=== PATIENT | female | born 1975 | race Caucasian/White ===

== ENCOUNTER → 2017-04-03 | Outpatient (CLI) | payer OTHER ==
[~2017-04-03] MED LIST: ACET500L36 PO; HYDR-757 PO; NAPR500T PO
--- NOTE | 2017-04-03 09:09 | Diagnostic Imaging Report ---
EXAMINATION: Bilateral diagnostic mammogram with a Computer Aided Detection (CAD) system. COMPARISON: No prior studies are available for comparison. This is a baseline study. INDICATION: Palpable lump in the right breast outer aspect. FINDINGS: The breasts are composed of heterogeneously dense parenchyma which may decrease mammographic sensitivity. There is nonspecific focal asymmetry in the lateral aspect of the right breast involving a large area of fibroglandular tissue density with no discrete separate mass identified on mammography. There is no suspicious calcification. IMPRESSION: Relatively large focal asymmetry in the outer aspect of the right breast. Ultrasound evaluation is pending. ACR BI-RADS Category 0: Incomplete. (Needs additional imaging evaluation). Result letter will be mailed to the patient. Note: At least 10% of breast cancer is not imaged by mammography. Dictated by: Dictated on workstation # [id number]
--- NOTE | 2017-04-03 11:46 | Diagnostic Imaging Report ---
EXAMINATION: Right breast ultrasound. INDICATION: Palpable lump and large focal asymmetry in the outer aspect of the right breast seen on mammography. FINDINGS: The four-quadrants and retroareolar region of the right breast were scanned. There are simple cysts seen in the right breast at the 10 o'clock zone 3 cm from the nipple up to 1.3 cm in size. There is also a lobulated cystic area with mild internal debris suggested but with preserved through transmission and no internal vascularity noted at the 11 o'clock zone 2 cm from the nipple. This measures 0.9 x 0.7 x 0.8 cm. No other lesion is noted. IMPRESSION: Hypoechoic lobulated lesion measuring 0.9 cm at the 11 o'clock zone 2 cm from the nipple is likely a complicated cyst. A 6 month followup right breast mammogram and ultrasound re-evaluation of the 11 o'clock lesion is recommended. ACR BI-RADS Category 3: Probably benign findings. Dictated by: Dictated on workstation # [id number]
== END ==
LOC: RAD 08:07
PROVIDERS: ATTEND Nurse Practitioner Adult Health
DX: N63 Unspecified lump in breast (principal)
CPT/HCPCS: 76641; 77066

== ENCOUNTER → 2017-10-25 | Outpatient (CLI) | payer OTHER ==
[~2017-10-25] MED LIST changes: +NAPR-1071 PO; -NAPR500T PO
--- NOTE | 2017-10-25 09:51 | Diagnostic Imaging Report ---
EXAMINATION: Ultrasound of the right breast. INDICATION: Right breast lumps. PERSONAL HISTORY: The previous right breast ultrasound exam performed on 04/03/2017 noted a few cysts within the upper outer aspect of the right breast including a 0.9 cm lobulated cyst in the 11 o'clock position roughly 2 cm from the nipple. The diagnostic mammogram of the right breast performed earlier today failed to show any sign of malignancy. FINDINGS: On this study, the lobulated cyst in the upper-outer aspect of the breast seen previously is again evident and has increased in size somewhat. This cyst now measures 1.2 x 1.6 cm. The cyst still has a generally benign appearance. There are also a few other cysts in this area as well. These cysts measure 1 cm or less but also seem somewhat more prominent than on the prior exam. These cysts also have a generally benign appearance. There are a few internal echoes within the cysts indicating that they may be slightly complicated by infection and/or hemorrhage. There is no internal vascularity, however. There is no solid mass visualized. IMPRESSION: The cysts in the upper-outer aspect of the right breast seen previously have increased in size somewhat. These cysts still have a generally benign appearance. Even so, it may prove worthwhile to re-evaluate these cysts when the patient has her annual bilateral mammogram on schedule in March 2019. ACR BI-RADS Category 3: Probably benign findings. Dictated by: Dictated on workstation # [id number]
--- NOTE | 2017-10-25 16:49 | Diagnostic Imaging Report ---
INDICATION: Right breast lump. EXAMINATION: Right breast digital diagnostic mammogram with CAD. The current study was also evaluated with a Computer Aided Detection (CAD) system. COMPARISON: This study was compared to the prior exam of 03/26/2017. FINDINGS: At the time of the prior study, the patient reports a lump in the upper-outer quadrant of the right breast. The diagnostic mammogram failed to show any sign of malignancy but the ultrasound exam performed at the same time did note a lobulated 0.9 cm cyst in the 11 o'clock position of the right breast. On this study, the fibroglandular tissue in the right breast is quite dense. This does limit the sensitivity of this exam. When compared to the previous study there does not appear to have been any significant change. There is no primary or secondary sign of malignancy noted. The cyst suggested on the ultrasound exam is difficult to appreciate even on the tomographic images. IMPRESSION: 1. There is no evidence for malignancy. 2. Ultrasound has been scheduled for further evaluation. ACR BI-RADS Category 0: Incomplete. (Needs additional imaging evaluation). Result letter will be mailed to the patient. Note: At least 10% of breast cancer is not imaged by mammography. Dictated by: Dictated on workstation # [id number]
== END ==
LOC: RAD 08:06
PROVIDERS: ATTEND Nurse Practitioner Family
DX: N60.01 Solitary cyst of right breast (principal)

== ENCOUNTER → 2017-11-07 | Outpatient (CLI) | payer OTHER ==
[~2017-11-07] MED LIST changes: +LIDOCAINE 2% 20 ML (XYLOCAINE) VIAL ONE
--- NOTE | 2017-11-07 11:47 | Diagnostic Imaging Report ---
INDICATION: Right breast cyst. Patient presents for ultrasound-guided cyst aspiration. The patient was brought to the procedure room and placed on the bed in the supine position. Ultrasound imaging over the right breast was performed to evaluate appropriate entry site. The right breast was prepped and draped in usual sterile fashion. A small amount of 1% lidocaine was utilized for local anesthesia. A 20-gauge needle was advanced into the cyst at the 10 o'clock location of the right breast, 3 cm from the nipple. Cyst fluid was aspirated. The cyst was completely collapsed. Approximately 1 cc of fluid was aspirated. Fluid was tea-colored. IMPRESSION: Successful ultrasound-guided aspiration of the simple appearing cyst 10 o'clock location right breast. The fluid will be sent to cytology for evaluation. The patient tolerated the procedure well. Dictated by: Dictated on workstation # [id number]
== END ==
LOC: RAD 08:48
PROVIDERS: ATTEND Surgery
DX: N60.01 Solitary cyst of right breast (principal)
CPT/HCPCS: 76942

== ENCOUNTER 2018-11-29 08:12 | Emergency (ER) | payer SELFPAY ==
[~2018-11-29] VITALS: Ht 165.1 cm; Wt 61.2 kg
[~2018-11-29 08:12] MED LIST changes: +HYDR-4226 PO; -HYDR-757 PO; -LIDOCAINE 2% 20 ML (XYLOCAINE) VIAL ONE
[2018-11-29 08:37] LABS: BASOPHILS # (AUTO) 0.1 10^3/uL (0.0-0.1); BASOPHILS % (AUTO) 1 % (0-10); EOSINOPHILS # (AUTO) 0.2 10^3/uL (0.0-0.3); EOSINOPHILS % (AUTO) 2 % (0-10); HEMATOCRIT 32 % (35-52); HEMOGLOBIN 9.2 G/DL (11.5-16.0); LYMPHOCYTES # (AUTO) 2.2 X 10^3 (1.0-4.0); LYMPHOCYTES % (AUTO) 33 % (12-44); MEAN CORPUSCULAR HEMOGLOBIN 22 PG (25-34); MEAN CORPUSCULAR HGB CONC 29 G/DL (32-36); MEAN CORPUSCULAR VOLUME 77 FL (80-99); MEAN PLATELET VOLUME 8.8 FL (7.4-10.4); MONOCYTES # (AUTO) 0.5 X 10^3 (0.0-1.0); MONOCYTES % (AUTO) 7 % (0-12); NEUTROPHILS # (AUTO) 3.9 X 10^3 (1.8-7.8); NEUTROPHILS % (AUTO) 57 % (42-75); PLATELET COUNT 568 10^3/uL (130-400); RED CELL DISTRIBUTION WIDTH 17.7 % (10.0-14.5); WHITE BLOOD COUNT 6.8 10^3/uL (4.3-11.0)
--- NOTE | 2018-11-29 08:47 | NUR ---
PT TO CT AT 0840
[2018-11-29 08:52] LABS: ALANINE AMINOTRANSFERASE 9 U/L (0-55); ALBUMIN 4.2 GM/DL (3.2-4.5); ALKALINE PHOSPHATASE 53 U/L (40-136); BILIRUBIN,TOTAL 0.4 MG/DL (0.1-1.0); BUN/CREATININE RATIO 14; CALCIUM 9.3 MG/DL (8.5-10.1); CARBON DIOXIDE 24 MMOL/L (21-32); CHLORIDE 105 MMOL/L (98-107); CREATININE SERUM 0.81 MG/DL (0.60-1.30); GFR ESTIMATED > 60; GLUCOSE 115 MG/DL (70-105); POTASSIUM 3.7 MMOL/L (3.6-5.0); SODIUM 140 MMOL/L (135-145); TOTAL PROTEIN 7.1 GM/DL (6.4-8.2)
--- NOTE | 2018-11-29 08:56 | Diagnostic Imaging Report ---
PROCEDURE: CT head wo r/o stroke. TECHNIQUE: Multiple contiguous axial images were obtained through the brain without the use of intravenous contrast. INDICATION: Stroke like symptoms. COMPARISON: None FINDINGS: There is no midline shift or mass effect. The ventricles and sulci are unremarkable. No evidence for acute intracranial hemorrhage, abnormal extra-axial fluid collections or cerebral edema is present. The basilar cisterns are unremarkable. The bony calvarium is intact. The visualized paranasal sinuses and mastoid air cells are clear. IMPRESSION: Negative appearing noncontrast CT of the head. Dictated by: Dictated on workstation # [id number]
[2018-11-29 08:59] LABS: FIBRIN DEGRADATION PRODUCTS 0.27 UG/ML (0.00-0.49)
[2018-11-29 08:59] LABS: BILIRUBIN,URINE NEGATIVE (NEGATIVE); CLARITY,URINE CLEAR; COLOR,URINE YELLOW; GLUCOSE, URINE (UA) NEGATIVE (NEGATIVE); KETONES,URINE NEGATIVE (NEGATIVE); LEUKOCYTE ESTERASE ,URINE NEGATIVE (NEGATIVE); NITRITE,URINE NEGATIVE (NEGATIVE); PH,URINE 6 (5-9); PROTEIN,URINE NEGATIVE (NEGATIVE); UROBILINOGEN,URINE NORMAL (NORMAL)
[2018-11-29 09:15] LABS: BACTERIA,URINE TRACE /HPF; WBC,URINE RARE /HPF
[2018-11-29 09:16] LABS: RBC,URINE RARE /HPF
--- NOTE | 2018-11-29 09:37 | NUR ---
pt back from ct at this time
--- NOTE | 2018-11-29 09:48 | Diagnostic Imaging Report ---
INDICATION: Stroke like symptoms, expressive aphasia. TECHNIQUE: Sequential multiphase CT imaging performed of the head for cerebral blood flow perfusion examination.. CORRELATION STUDY: None FINDINGS: This is a technically satisfactory study. The cerebral blood flow and cerebral blood volume are measured at zero suggesting no acute area of infarct currently. The perfusion studies demonstrate a very small volume of the brain parenchyma measuring greater than 6 seconds, involving the posterior inferior left frontal and temporal lobe. An adjacent volume of approximately 13 mm surrounding this area measures greater than 4 seconds. The total hypoperfusion index is measured at 0 with a mismatch ratio at infinite. IMPRESSION: 1. Perfusion imaging demonstrates no finding suggestive of the significant volume of infarct. 2. There is some diminished delayed perfusion suggested about the posterior inferior left frontal and temporal lobe. Findings have been telephoned to Dr. Anderson. Dictated by: Dictated on workstation # [id number]
--- NOTE | 2018-11-29 09:49 | Diagnostic Imaging Report ---
PA chest at 9:32 Indication: CVA There are no prior studies available for comparison but this exam is less than optima due to shallow inspiration. The heart size is within normal limits. The lungs are clear. There is no evidence for failure, pneumonia or for pleural effusion. Mediastinum is not widened. The osseous structures are intact. Impression: There is no evidence for an acute cardiopulmonary abnormality. Dictated by: Dictated on workstation # [id number]
--- NOTE | 2018-11-29 10:20 | NUR ---
pt brother at pt bedside.
--- NOTE | 2018-11-29 11:30 | Diagnostic Imaging Report ---
PROCEDURE: CT angiography of the head and CT angiography of the neck with and without contrast. TECHNIQUE: Contiguous noncontrast images were obtained from the skull base through the vertex. After intravenous contrast administration, helical CT angiography of the neck was performed. Source data was reformatted into multiple MIP projections. Delayed post contrast acquisition was also obtained. INDICATION: CVA, difficulty speaking, right hand weakness. The CT head exam performed earlier today failed to show any sign acute intracranial abnormality. The subsequent CT perfusion study did show a very small area of delayed perfusion involving the left posterior frontal and temporal lobes. On this exam there is no defect within the intracranial arterial circulation to suggest a thrombus. There is no significant alteration in appearance to the vessels in the left frontal temporal region compared to the right frontal temporal region. There does seem to be a paucity of the opacified vessels in this area however, when compared to the contralateral side. No other vascular abnormality is identified. There is no evidence for an aneurysm of the [place] of [place] either. There is no abnormal enhancement to suggest a neoplastic or infectious process either. The images of the carotid systems failed to show any sign of a hemodynamically significant stenosis. Both vertebral arteries were identified. The vertebral arteries are opacified and there is no sign of a dissection. The left vertebral artery is dominant. There is no mass or adenopathy in the neck. The tracheal air shadow is not compressed or deviated. The thyroid gland is generally unremarkable The lung apices are clear. The bone windows show no evidence for a fracture or for destructive lesion. There is degenerative disc and bony disease at C4-5. IMPRESSION: 1. There is no defect within the intracranial arterial circulation to suggest a thrombus. There is no sign of an aneurysm of the [place] of [place] either. 2. There does seem to be a paucity of opacified vessels in the area of delayed perfusion seen on the perfusion study. If further imaging is desired, MRI would recommended. 3. There no evidence for hemodynamically significant stenosis of the carotid systems. The vertebral arteries are generally unremarkable. These results were discussed Dr. Anderson. Dictated by: Dictated on workstation # [id number]
[2018-11-29] MEDS ORDERED: ASPIRIN 325 MG (5 GR) TABLET PO ONE (12:30)
--- NOTE | 2018-11-29 13:12 | ED Neurological Problem ---
General Chief Complaint: Neuro-Stroke Like Symptoms Stated Complaint: POSSIBLE STROKE Nursing Triage Note: PT PRESENTS TO ED WITH COMPLAINTS OF DIFFICULTY SPEAKING AND R HAND WEAKNESS STARTING WHEN SHE WOKE UP AT 0730 THIS AM. PT REPORTS SHE WENT TO BED AT 1130 LAST NIGHT AND WAS FEELING FINE THEN. Nursing Sepsis Screen: No Definite Risk Source: patient Exam Limitations: no limitations History of Present Illness Date Seen by Provider: Nov 29, 2018 Time Seen by Provider: 08:18 Initial Comments This 42-year-old woman presents to the emergency room with difficulty with word finding and completion of expressed thoughts. Her last known well time was at 23:30 when she went to bed. She noticed these symptoms of difficulty with speech upon waking. She has numbness in her right upper extremity but no measurable deficits in strength or coordination. She has no history of stroke. She does not take any blood thinning medications. She notes having a headache yesterday for which she took Tylenol or naproxen. Allergies and Home Medications Allergies Coded Allergies: Penicillins (Unverified Adverse Reaction, Unknown, 03/16/16) Home Medications Acetaminophen 500 Mg/5 Ml Liquid, 500 MG PO Q6H PRN for PAIN, (Reported) Hydrocodone/Acetaminophen 1 Each Tablet, 1 EACH PO Q4H PRN for PAIN Prescribed by: FILIBERTO MEADE on 03/16/16 1507 Naproxen 500 Mg Tablet, 500 MG PO BID Prescribed by: FILIBERTO MEADE on 03/16/16 1507 Patient Home Medication List Home Medication List Reviewed: Yes Review of Systems Review of Systems Constitutional: no symptoms reported Eyes: No Symptoms Reported Ears, Nose, Mouth, Throat: no symptoms reported Respiratory: no symptoms reported Cardiovascular: no symptoms reported Gastrointestinal: no symptoms reported Genitourinary: no symptoms reported : No Musculoskeletal: no symptoms reported Skin: no symptoms reported Psychiatric/Neurological: See HPI Endocrine: No Symptoms Reported Hematologic/Lymphatic: No Symptoms Reported Past Rfzsjeb-Juppzn-Huudvw Hx Patient Social History Alcohol Use: Denies Use Recreational Drug Use: No Smoking Status: Current Someday Smoker Type Used: Cigarettes Recent Foreign Travel: No Contact w/Someone Who Travel: No Recent Infectious Disease Expo: No Physical Abuse: No Sexual Abuse: No Mistreated: No Fear: No Seasonal Allergies Seasonal Allergies: No Past Medical History Surgeries: Yes Tubal Ligation Respiratory: No Cardiac: No Neurological: No : No Genitourinary: No Gastrointestinal: No Musculoskeletal: Yes (ANKLE FRACTURE, CHRONIC NECK PAIN) Arthritis Endocrine: Yes ("BORDERLINE DIABETIC") Cancer: No Psychosocial: No Blood Disorders: No Physical Exam Vital Signs Vital Signs - First Documented 11/29/18 08:22 Temp 98.0 Pulse 77 Resp 20 B/P (MAP) 144/81 (102) Pulse Ox 97 Capillary Refill : Less Than 3 Seconds Height, Weight, BMI Height: 5'5.00" Weight: 135lbs. oz. 61.634691gx; BMI Method:Stated General Appearance: WD/WN, no apparent distress HEENT: PERRL/EOMI, normal ENT inspection, pharynx normal Neck: normal inspection Respiratory: lungs clear, normal breath sounds, no respiratory distress, no accessory muscle use Cardiovascular: regular rate, rhythm, no edema, no murmur Extremities: normal inspection, no pedal edema Neurologic/Psychiatric: alert, normal mood/affect, oriented x 3, sensory deficit (slight numbness on the right and) Crainal Nerves: normal hearing, PERRL, abnormal speech (expressive aphasia) Coordination/Gait: normal finger to nose, normal gait Motor/Sensory: no motor deficit, sensory deficit (right upper extremity) Skin: normal color, warm/dry Stroke Onset of Symptoms Date of Onset of Symptoms: Nov 28, 2018 NIH Stroke Scale Assessment Level of Consciousness: 0=Alert (0), Level of Consciousness-Questions: 0= Answers both month/age (0), LOC Commands: 0=Performs both tasks (0), Visual Cruz: 0=No visual loss (0), Facial Movement (Facial Paresis): 0=Normal symmetrical mnt (0), Motor Function-Arms Right: 0=No drift (0), Motor Function- Arms Left: 0=No drift (0), Motor Function-Legs Right: 0=No drift (0), Motor Function-Legs Left: 0=No drift (0), Limb Ataxia: 0=Absent (0), Sensory: 1=Mild to Moderate loss (1), Best Language: 1=Mild to moderat aphasia (1), Dysarthria: 1=Mild to moderate loss (1), Extinction & Inattention: 1=Visual,tactile, auditory (1), Total: 4 Stroke Thrombolytic Exclusion Age 18 or Over: Yes Intracranial Neoplasm/Aneurysm: No Recent CPR: No Diabetic Hemorrhagic Retinopat: No Recent Obstetric Delivery: No Improving Symptoms: No Progress/Results/Core Measures Results/Orders Lab Results Laboratory Tests Test 11/29/18 08:21 11/29/18 08:22 11/29/18 08:43 Range/Units Glucometer 121 H 70-110 MG/DL White Blood Count 6.8 4.3-11.0 10^3/uL Red Blood Count 4.12 L 4.35-5.85 10^6/uL Hemoglobin 9.2 L 11.5-16.0 G/DL Hematocrit 32 L 35-52 % Mean Corpuscular Volume 77 L 80-99 FL Mean Corpuscular Hemoglobin 22 L 25-34 PG Mean Corpuscular Hemoglobin Concent 29 L 32-36 G/DL Red Cell Distribution Width 17.7 H 10.0-14.5 % Platelet Count 568 H 130-400 10^3/uL Mean Platelet Volume 8.8 7.4-10.4 FL Neutrophils (%) (Auto) 57 42-75 % Lymphocytes (%) (Auto) 33 12-44 % Monocytes (%) (Auto) 7 0-12 % Eosinophils (%) (Auto) 2 0-10 % Basophils (%) (Auto) 1 0-10 % Neutrophils # (Auto) 3.9 1.8-7.8 X 10^3 Lymphocytes # (Auto) 2.2 1.0-4.0 X 10^3 Monocytes # (Auto) 0.5 0.0-1.0 X 10^3 Eosinophils # (Auto) 0.2 0.0-0.3 10^3/uL Basophils # (Auto) 0.1 0.0-0.1 10^3/uL Prothrombin Time 13.0 12.2-14.7 SEC INR Comment 1.0 0.8-1.4 Activated Partial Thromboplast Time 29 24-35 SEC D-Dimer 0.27 0.00-0.49 UG/ML Sodium Level 140 135-145 MMOL/L Potassium Level 3.7 3.6-5.0 MMOL/L Chloride Level 105 98-107 MMOL/L Carbon Dioxide Level 24 21-32 MMOL/L Anion Gap 11 5-14 MMOL/L Blood Urea Nitrogen 11 7-18 MG/DL Creatinine 0.81 0.60-1.30 MG/DL Estimat Glomerular Filtration Rate > 60 BUN/Creatinine Ratio 14 Glucose Level 115 H 70-105 MG/DL Calcium Level 9.3 8.5-10.1 MG/DL Corrected Calcium 9.1 8.5-10.1 MG/DL Total Bilirubin 0.4 0.1-1.0 MG/DL Aspartate Amino Transf (AST/SGOT) 15 5-34 U/L Alanine Aminotransferase (ALT/SGPT) 9 0-55 U/L Alkaline Phosphatase 53 40-136 U/L Troponin I < 0.028 <0.028 NG/ML Total Protein 7.1 6.4-8.2 GM/DL Albumin 4.2 3.2-4.5 GM/DL Urine Color YELLOW Urine Clarity CLEAR Urine pH 6 5-9 Urine Specific [place] 1.010 L 1.016-1.022 Urine Protein NEGATIVE NEGATIVE Urine Glucose (UA) NEGATIVE NEGATIVE Urine Ketones NEGATIVE NEGATIVE Urine Nitrite NEGATIVE NEGATIVE Urine Bilirubin NEGATIVE NEGATIVE Urine Urobilinogen NORMAL NORMAL MG/DL Urine Leukocyte Esterase NEGATIVE NEGATIVE Urine RBC (Auto) 1+ H NEGATIVE Urine RBC RARE /HPF Urine WBC RARE /HPF Urine Squamous Epithelial Cells 5-10 /HPF Urine Crystals NONE /LPF Urine Bacteria TRACE /HPF Urine Casts NONE /LPF Urine Mucus SMALL H /LPF Urine Culture Indicated YES My Orders Orders - EVELYN VASQUEZ MD Cbc With Automated Diff (11/29/18 08:28) Protime With Inr (11/29/18 08:28) Partial Thromboplastin Time (11/29/18 08:28) Comprehensive Metabolic Panel (11/29/18 08:28) Fibrin Degradation Products (11/29/18 08:28) Troponin I (11/29/18 08:28) Ua Culture If Indicated (11/29/18 08:28) Chest 1 View, Ap/Pa Only (11/29/18 08:28) Ekg Tracing (11/29/18 08:28) Nothing By Mouth (11/29/18 Lunch) Accucheck Stat ONCE (11/29/18 08:28) Saline Lock/Iv-Start (11/29/18 08:28) Saline Lock/Iv-Start (11/29/18 08:28) Vital Signs Stroke Patient Q15M (11/29/18 08:28) Ct Head Wo-R/O Stroke (11/29/18 08:28) O2 (11/29/18 08:28) Intake & Output 06,14,22 (11/29/18 08:28) Monitor-Rhythm Ecg Trace Only (11/29/18 08:28) Dysphagia Screening Tool (11/29/18 08:28) Post Thrombolytic Adminstratio (11/29/18 08:28) Lipid Panel (11/30/18 06:00) Ct Angio Head/Neck (11/29/18 08:28) Ct Head Perfusion W/ Contrast (11/29/18 08:48) Urine Culture (11/29/18 08:43) Aspirin Tablet (Aspirin Tablet) (11/29/18 12:30) Medications Given in ED Current Medications Medications Dose Ordered Sig/Chase Route Start Time Stop Time Status Last Admin Dose Admin Aspirin 325 mg ONCE ONCE PO 11/29/18 12:30 11/29/18 12:31 DC 11/29/18 12:48 325 MG Vital Signs/I&O 11/29/18 08:22 Temp 98.0 Pulse 77 Resp 20 B/P (MAP) 144/81 (102) Pulse Ox 97 Blood Pressure Mean: 102 FSBG Bedside Testing Finger Stick Blood Glucose: 121 Progress Progress Note : Progress Note Stroke activation was paged after initial assessment. Initial NIH stroke score was 4, primarily due to the expressive aphasia. Dr. Gomez, stroke neurologist at [facility], was consulted. She recommended adding a CT perfusion scan. These imaging studies were obtained. There were no additional findings on CT perfusion scan or CT angiogram to prompt transfer for intravascular therapies. She didn't recommend completion of the stroke workup to include MRI and echocardiogram. MRI cannot be performed at this facility until December 01. Patient elected to transfer to [facility] to finish her evaluation. She remained stable during her ER stay. Workup was otherwise unremarkable. Repeat NIH stroke score was 4. Aspirin was given after patient passed her dysphagia screening. Initial ECG Impression Date: Nov 29, 2018 Initial ECG Impression Time: 09:46 Initial ECG Rate: 65 Initial ECG Rhythm: Normal Sinus Initial ECG Intervals: Normal Initial ECG Impression: Normal Comment Normal sinus rhythm with no ST elevation or depression. No abnormal intervals or axis deviation. Diagnostic Imaging Diagonstic Imaging: CT Plain Films/CT/US/NM/MRI: head Comments CT head viewed by me and report reviewed. See report below: NAME: EDUARDO ROWE [facility] REC#: [id number] PT STATUS: REG ER : 1975 PHYSICIAN: EVELYN VASQUEZ MD ADMIT DATE: 11/29/18/ER Signed Date of Exam: 11/29/18 CT HEAD WO-R/O STROKE PROCEDURE: CT head wo r/o stroke. TECHNIQUE: Multiple contiguous axial images were obtained through the brain without the use of intravenous contrast. INDICATION: Stroke like symptoms. COMPARISON: None FINDINGS: There is no midline shift or mass effect. The ventricles and sulci are unremarkable. No evidence for acute intracranial hemorrhage, abnormal extra-axial fluid collections or cerebral edema is present. The basilar cisterns are unremarkable. The bony calvarium is intact. The visualized paranasal sinuses and mastoid air cells are clear. IMPRESSION: Negative appearing noncontrast CT of the head. Dictated by: Dictated on workstation # [id number] Dict: 11/29/18 0853 Trans: 11/29/18 0854 Interpreted by: ERICA KYLE DO Electronically signed by: ERICA KYLE DO 11/29/18 0854 Diagonstic Imaging: CT Plain Films/CT/US/NM/MRI: other (angiogram head and neck) Comments CT angiogram head and neck report reviewed and discussed with the radiologist. See report below: NAME: EDUARDO ROWE [facility] REC#: [id number] PT STATUS: REG ER : 1975 PHYSICIAN: EVELYN VASQUEZ MD ADMIT DATE: 11/29/18/ER Signed Date of Exam: 11/29/18 CT ANGIO HEAD/NECK PROCEDURE: CT angiography of the head and CT angiography of the neck with and without contrast. TECHNIQUE: Contiguous noncontrast images were obtained from the skull base through the vertex. After intravenous contrast administration, helical CT angiography of the neck was performed. Source data was reformatted into multiple MIP projections. Delayed post contrast acquisition was also obtained. INDICATION: CVA, difficulty speaking, right hand weakness. The CT head exam performed earlier today failed to show any sign acute intracranial abnormality. The subsequent CT perfusion study did show a very small area of delayed perfusion involving the left posterior frontal and temporal lobes. On this exam there is no defect within the intracranial arterial circulation to suggest a thrombus. There is no significant alteration in appearance to the vessels in the left frontal temporal region compared to the right frontal temporal region. There does seem to be a paucity of the opacified vessels in this area however, when compared to the contralateral side. No other vascular abnormality is identified. There is no evidence for an aneurysm of the [place] either. There is no abnormal enhancement to suggest a neoplastic or infectious process either. The images of the carotid systems failed to show any sign of a hemodynamically significant stenosis. Both vertebral arteries were identified. The vertebral arteries are opacified and there is no sign of a dissection. The left vertebral artery is dominant. There is no mass or adenopathy in the neck. The tracheal air shadow is not compressed or deviated. The thyroid gland is generally unremarkable The lung apices are clear. The bone windows show no evidence for a fracture or for destructive lesion. There is degenerative disc and bony disease at C4-5. IMPRESSION: 1. There is no defect within the intracranial arterial circulation to suggest a thrombus. There is no sign of an aneurysm of the [place] either. 2. There does seem to be a paucity of opacified vessels in the area of delayed perfusion seen on the perfusion study. If further imaging is desired, MRI would recommended. 3. There no evidence for hemodynamically significant stenosis of the carotid systems. The vertebral arteries are generally unremarkable. These results were discussed Dr. Anderson. Dictated by: Dictated on workstation # [id number] Dict: 11/29/18 0952 Trans: 11/29/18 1147 Interpreted by: COLIN RITTER MD Electronically signed by: COLIN RITTER MD 11/29/18 1147 Diagonstic Imaging: Xray Plain Films/CT/US/NM/MRI: chest Comments NAME: EDUARDO ROWE [facility] REC#: [id number] PT STATUS: REG ER : 1975 PHYSICIAN: EVELYN VASQUEZ MD ADMIT DATE: 11/29/18/ER Signed Date of Exam: 11/29/18 CHEST 1 VIEW, AP/PA ONLY PA chest at 9:32 Indication: CVA There are no prior studies available for comparison but this exam is less than optima due to shallow inspiration. The heart size is within normal limits. The lungs are clear. There is no evidence for failure, pneumonia or for pleural effusion. Mediastinum is not widened. The osseous structures are intact. Impression: There is no evidence for an acute cardiopulmonary abnormality. Dictated by: Dictated on workstation # [id number] Dict: 11/29/18 0943 Trans: 11/29/18 1137 Interpreted by: COLIN RITTER MD Electronically signed by: COLIN RITTER MD 11/29/18 1137 Diagonstic Imaging: CT Plain Films/CT/US/NM/MRI: head (CT perfusion scan) Comments CT reviewed with neurologist and with radiologist. RAPID report reviewed. See report below: NAME: EDUARDO ROWE [facility] REC#: [id number] PT STATUS: REG ER : 1975 PHYSICIAN: EVELYN VASQUEZ MD ADMIT DATE: 11/29/18/ER Draft Date of Exam:11/29/18 CT HEAD PERFUSION W/ CONTRAST INDICATION: Stroke like symptoms, expressive aphasia. TECHNIQUE: Sequential multiphase CT imaging performed of the head for cerebral blood flow perfusion examination.. CORRELATION STUDY: None FINDINGS: This is a technically satisfactory study. The cerebral blood flow and cerebral blood volume are measured at zero suggesting no acute area of infarct currently. The perfusion studies demonstrate a very small volume of the brain parenchyma measuring greater than 6 seconds, involving the posterior inferior left frontal and temporal lobe. An adjacent volume of approximately 13 mm surrounding this area measures greater than 4 seconds. The total hypoperfusion index is measured at 0 with a mismatch ratio at infinite. IMPRESSION: 1. Perfusion imaging demonstrates no finding suggestive of the significant volume of infarct. 2. There is some diminished delayed perfusion suggested about the posterior inferior left frontal and temporal lobe. Findings have been telephoned to Dr. Anderson. Dictated on workstation # [id number] Dict: 11/29/18 1000 Trans: 11/29/18 1032 CVB [id number] Interpreted by: ERICA KYLE DO Departure Impression Primary Impression: Expressive aphasia Additional Impression: Right sided numbness Disposition: 02 XFER SHT-TRM HOSP Condition: Stable Transfer Time Spoke to Accepting Phy: 13:05 Transfer Progress Notes Patient transfer accepted by Dr. Banda [facility] hospitalist. Transfer Time: 13:58 Transfer Facility: [facility] Method of Transfer: Private Vehicle Departure-Patient Inst. Referrals: GILLIAN RODRIGUEZ DO (PCP) Primary Care Physician ANTHONY ZAMORANO APRN (Family) Primary Care Physician Patient Instructions: Stroke Add. Discharge Instructions: Presented directly to [facility]. Call 911 if you have worsening symptoms. All discharge instructions reviewed with patient and/or family. Voiced understanding. EVELYN VASQUEZ MD Nov 29, 2018 13:12
[2018-11-29 14:37] VITALS: BP 102/73
== END 2018-11-29 14:37 | disposition short-term general hospital (02) ==
LOC: EDUNIT# 08:12 → ER 08:15
DX: R47.01 Aphasia (principal); R20.0 Anesthesia of skin; F17.210 Nicotine dependence, cigarettes, uncomplicated; Z88.0 Allergy status to penicillin; Z98.51 Tubal ligation status
CPT/HCPCS: 0042T; 36415; 70450; 70496; 70498; 71045; 80053; 81000; 82962; 84484; 85025; 85379; 85610; 85730; 87088; 93005; 93041

== ENCOUNTER 2019-04-02 08:25 | Day surgery (SDC) | payer OTHER ==
[~2019-04-02] VITALS: Ht 165.1 cm; Wt 84.8 kg
[2019-04-02] VITALS (12 sets, daily range): BP systolic 90–124; BP diastolic 57–86
[2019-04-02] MEDS ORDERED: LIDOCAINE 2% VISCOUS 15 ML UDC ONE ×2 (08:32→09:21)
[2019-04-02] MEDS ORDERED: NS IV 1000 ML 1,000 ML ONE (08:32)
--- OUTSIDE RECORDS SUMMARY | 2019-04-02 08:35 | XMS REPORT ---
Author Author ZAMORANOANTHONY Rai Organization [facility] Address [address] [place] [address] Care Team Providers Care Patent Paralegal Name Role Phone ZAMORANOANTHONY Rai Unavailable PROBLEMS Type Condition ICD9-CM Code PNT83-WG Code Onset Dates Condition Status SNOMED Code Problem Left cervical radiculopathy M54.12 Active 93475097 ALLERGIES No Information ENCOUNTERS Encounter Location Date Diagnosis [facility] [id number] [place] [phone] May, [facility] [id number] [place] [phone] Mar, Left cervical radiculopathy M54.12 [facility] [id number] [place] [phone] Oct, [facility] [id number] [place] [phone] Oct, [facility] [id number] [place] [phone] Oct, Breast lump in female N63 [facility] [id number] [place] [phone] Apr, [facility] [id number] [place] [phone] Apr, Breast lump in female N63 [facility] [id number] [place] [phone] Mar, Lump of right breast N63 [facility] [id number] [place] [phone] Nov, Bronchitis J40 and Cough R05 IMMUNIZATIONS No Known Immunizations SOCIAL HISTORY Never Assessed REASON FOR VISIT Lab results PLAN OF CARE VITAL SIGNS MEDICATIONS Unknown Medications RESULTS Name Result Date Reference Range Mammogram Dx, Right 2017-10-25 PROCEDURES No Known procedures INSTRUCTIONS MEDICATIONS ADMINISTERED No Known Medications MEDICAL (GENERAL) HISTORY Type Description Date Medical History Small broad-based posterior disc bulge with superimposed large left paracentral/lateral recess disc protrusion which results in severe left lateral recess stenosis and probalble impingement upon the exiting left C5 nerve root. Medical History Mild multilevel degenerative disc desiccation Surgical History tubal ligation 09/09/1996
--- OUTSIDE RECORDS SUMMARY | 2019-04-02 08:35 | XMS REPORT ---
Author Author KIM CUNNINGHAM Organization [facility] Address [address] [place] [address] Care Team Providers Care Talent Acquisition Sourcer Name Role Phone KIM CUNNINGHAM Unavailable PROBLEMS Type Condition ICD9-CM Code GTC75-DV Code Onset Dates Condition Status SNOMED Code Problem Migraine without aura and without status migrainosus, not intractable G43.009 Active [id number] Problem Left cervical radiculopathy M54.12 Active 56375257 ALLERGIES Substance Reaction Event Type Date Status Penicillin V Potassium paralysis Drug Allergy May, Active ENCOUNTERS Encounter Location Date Diagnosis [place] [address] [address] 12 Jun, 2018 Encounter for weight loss counseling Z71.3 ; BMI 29.0-29.9,adult Z68.29 ; Migraine without aura and without status migrainosus, not intractable G43.009 and Left cervical radiculopathy M54.12 [place] [address] [place] [id number] [place] [phone] May, BMI 28.0-28.9,adult Z68.28 and Migraine without aura and without status migrainosus, not intractable G43.009 [place] [address] [place] [id number] [place] [phone] 13 Mar, 2018 Left cervical radiculopathy M54.12 ; Morbid (severe) obesity due to excess calories E66.01 and Body mass index (BMI) of 40.0-44.9 in adult Z68.41 [place] [id number] [place] [phone] Oct, [place] [id number] [place] [phone] Oct, [place] [address] [facility] [id number] [place] [address] Oct, Breast lump in female N63 [facility] [address] [facility] [id number] [address] Apr, [facility] [address] [facility] [id number], [place] [address] Apr, Breast lump in female N63 [facility] [address] [facility] [id number], [place] [address] Mar, Lump of right breast N63 [facility] [address] [facility] [id number], [place] [address] Nov, Bronchitis J40 and Cough R05 IMMUNIZATIONS No Known Immunizations SOCIAL HISTORY Never Assessed REASON FOR VISIT Medication f/u, Pt wants to discuss weight loss . HERLINDA Marinelli PLAN OF CARE Activity Details Follow Up 3 Months with Jessica weight management Reason: VITAL SIGNS Height 66 in 2018-05-13 Weight 178.6 lbs 2018-05-13 Temperature 98.0 degrees Fahrenheit 2018-05-13 Heart Rate 76 bpm 2018-05-13 Respiratory Rate 20 2018-05-13 BMI 28.82 kg/m2 2018-05-13 Blood pressure systolic 122 mmHg 2018-05-13 Blood pressure diastolic 82 mmHg 2018-05-13 MEDICATIONS Medication Instructions Dosage Frequency Start Date End Date Duration Status Topiramate 100 mg Orally at night 1/2 tablet May, Active Naproxen 500 mg Orally every 12 hrs 1 tablet with food or milk as needed 12h 13 Mar, 2018 Active RESULTS No Results PROCEDURES No Known procedures INSTRUCTIONS MEDICATIONS ADMINISTERED No Known Medications MEDICAL (GENERAL) HISTORY Type Description Date Medical History Small broad-based posterior disc bulge with superimposed large left paracentral/lateral recess disc protrusion which results in severe left lateral recess stenosis and probalble impingement upon the exiting left C5 nerve root. Medical History Mild multilevel degenerative disc desiccation Medical History Morbid (severe) obesity due to excess calories Surgical History tubal ligation 09/09/1996 Hospitalization History child / surgery
--- OUTSIDE RECORDS SUMMARY | 2019-04-02 08:35 | XMS REPORT ---
Author Author ZAMORANOANTHONY Rai Organization [facility] Address [address] [place] [address] Care Team Providers Care Kerfer Machine Operator Name Role Phone ZAMORANOANTHONY Rai Unavailable PROBLEMS Type Condition ICD9-CM Code VEP92-PF Code Onset Dates Condition Status SNOMED Code Problem Left cervical radiculopathy M54.12 Active 14462223 ALLERGIES No Information ENCOUNTERS Encounter Location Date Diagnosis [facility] [id number] [place] [address] May, [facility] [id number] [place] [address] Mar, Left cervical radiculopathy M54.12 [facility] [id number] [place] [address] Oct, [facility] [id number] [place] [address] Oct, [facility] [id number] [place] [address] Oct, Breast lump in female N63 [facility] [id number] [place] [address] Apr, [facility] [id number] [place] [address] Apr, Breast lump in female N63 [facility] [id number] [place] [address] Mar, Lump of right breast N63 [facility] [address] [place] [address] Nov, Bronchitis J40 and Cough R05 IMMUNIZATIONS No Known Immunizations SOCIAL HISTORY Never Assessed REASON FOR VISIT Requests return call PLAN OF CARE VITAL SIGNS MEDICATIONS Unknown Medications RESULTS No Results PROCEDURES No Known procedures [...]
--- OUTSIDE RECORDS SUMMARY | 2019-04-02 08:35 | XMS REPORT ---
Author Author KIM CUNNINGHAM Organization [facility] Address [address] [place] [address] Care Team Providers Care Gas Burner Operator Name Role Phone KIM CUNNINGHAM Unavailable PROBLEMS Type Condition ICD9-CM Code OQL05-ND Code Onset Dates Condition Status SNOMED Code Problem Migraine without aura and without status migrainosus, not intractable G43.009 Active 390458353 Problem Left cervical radiculopathy M54.12 Active 52402014 ALLERGIES No Information ENCOUNTERS Encounter Location Date Diagnosis [place] [id number] [place] [phone] 10 Jul, 2018 [place] [address] [address] 20 Jun, 2018 Abnormal mammogram R92.8 [place] [address] [address] 12 Jun, 2018 Encounter for weight loss counseling Z71.3 ; BMI 29.0-29.9,adult Z68.29 ; Migraine without aura and without status migrainosus, not intractable G43.009 and Left cervical radiculopathy M54.12 [place] [id number] [place] [address] 07 May, 2018 BMI 28.0-28.9,adult Z68.28 and Migraine without aura and without status migrainosus, not intractable G43.009 [place] [address] [address] 13 Mar, 2018 Left cervical radiculopathy M54.12 ; Morbid (severe) obesity due to excess calories E66.01 and Body mass index (BMI) of 40.0-44.9 in adult Z68.41 [place] [id number] [address] Oct, [facility] [id number] [address] Oct, [facility] [id number] [address] Oct, Breast lump in female N63 [facility] [address] [address] Apr, [facility] [id number] [address] Apr, Breast lump in female N63 [facility] [address] [address] Mar, Lump of right breast N63 [facility] [id number] [address] Nov, Bronchitis J40 and Cough R05 IMMUNIZATIONS No Known Immunizations SOCIAL HISTORY Never Assessed REASON FOR VISIT mammogram order PLAN OF CARE Activity Details Pending Test Mammogram Dx, Bilateral VITAL SIGNS MEDICATIONS Unknown Medications RESULTS No [...] Morbid (severe) obesity due to excess calories Medical History Morbid (severe) obesity due to excess calories Surgical History tubal ligation 09/09/1996 Hospitalization History child / surgery
--- OUTSIDE RECORDS SUMMARY | 2019-04-02 08:35 | XMS REPORT ---
Author Author ANTHONY ZAMORANO Organization [facility] Address [address] [place] [address] Care Team Providers Care Industrial Engineering Technologist Name Role Phone ANTHONY ZAMORANO Unavailable PROBLEMS Unknown Problems ALLERGIES No Known Allergies SOCIAL HISTORY Never Assessed PLAN OF CARE Activity Details Follow Up prn Reason: VITAL SIGNS Weight 192.4 lbs 2016-12-03 Temperature 98.8 degrees Fahrenheit 2016-12-03 Heart Rate 120 bpm 2016-12-03 Respiratory Rate 22 2016-12-03 Blood pressure systolic 130 mmHg 2016-12-03 Blood pressure diastolic 76 mmHg 2016-12-03 MEDICATIONS Medication Instructions Dosage Frequency Start Date End Date Duration Status ProAir HFA 108 (90 Base) MCG/ACT Inhalation every 4 hrs 2 puffs as needed 4h Nov, 10 days Active Azithromycin 250 MG Orally Once a day 2 tablets on the first day, then 1 tablet daily for 4 days 24h Nov, Dec, 5 day(s) Active PredniSONE 20 mg Orally Once a day 1 tablet 24h Nov, Dec, 05 days Active RESULTS Name Result Date Reference Range Xray : Chest (IN HOUSE) 2016-12-03 PROCEDURES Procedure Date Ordered Result Body Site CHEST X-RAY Dec 03, 2016 IMMUNIZATIONS No Known Immunizations
--- OUTSIDE RECORDS SUMMARY | 2019-04-02 08:35 | XMS REPORT ---
Author Author KIM CUNNINGHAM Organization [facility] Address [address] [place] [address] Care Team Providers Care Museum Or Zoo Director Name Role Phone KIM CUNNINGHAM Unavailable PROBLEMS Type Condition ICD9-CM Code RSK14-YQ Code Onset Dates Condition Status SNOMED Code Problem Migraine without aura and without status migrainosus, not intractable G43.009 Active 291052042 Problem Left cervical radiculopathy M54.12 Active 87532036 ALLERGIES Substance Reaction Event Type Date Status Penicillin V Potassium paralysis Drug Allergy Jun, Active ENCOUNTERS Encounter Location Date Diagnosis [place] [address] [address] Jul, [facility] [address] [address] 20 Jun, 2018 Abnormal mammogram R92.8 [place] [address] [address] 12 Jun, 2018 Encounter for weight loss counseling Z71.3 ; BMI 29.0-29.9,adult Z68.29 ; Migraine without aura and without status migrainosus, not intractable G43.009 and Left cervical radiculopathy M54.12 [facility] [id number] [place] [address] 07 May, 2018 BMI 28.0-28.9,adult Z68.28 and Migraine without aura and without status migrainosus, not intractable G43.009 [place] [id number] [place] [address] 13 Mar, 2018 Left cervical radiculopathy M54.12 ; Morbid (severe) obesity due to excess calories E66.01 and Body mass index (BMI) of 40.0-44.9 in adult Z68.41 [facility] [address], [place] [address] Oct, [facility] [address], [place] [address] Oct, [facility] [address], [place] [address] Oct, Breast lump in female N63 [facility] [id number] [place] [address] Apr, [facility] [address] [place] [address] Apr, Breast lump in female N63 [facility] [address], [place] [address] Mar, Lump of right breast N63 [facility] [address], [place] [address] Nov, Bronchitis J40 and Cough R05 IMMUNIZATIONS No Known Immunizations SOCIAL HISTORY Never Assessed REASON FOR VISIT meds f/u. Pt was rx Topamax for wt loss and she has been unable to take it. Pt s tarted feeling numbness in her neck and face. At one point while on the medicati on, it felt like someone had their hands around her throat.-[facility]woods PLAN OF CARE Activity Details Follow Up 3 Months with Jessica for weight management Reason: VITAL SIGNS Height 66 in 2018-06-18 Weight 174.3 lbs 2018-06-18 Temperature 98.5 degrees Fahrenheit 2018-06-18 Heart Rate 80 bpm 2018-06-18 Respiratory Rate 20 2018-06-18 BMI 28.13 kg/m2 2018-06-18 Blood pressure systolic 120 mmHg 2018-06-18 Blood pressure diastolic 68 mmHg 2018-06-18 MEDICATIONS Medication Instructions Dosage Frequency Start Date End Date Duration Status Naproxen 500 mg Orally every 12 hrs [...]
--- OUTSIDE RECORDS SUMMARY | 2019-04-02 08:35 | XMS REPORT ---
Author Author KIM CUNNINGHAM Organization [facility] Address [address] [place] [address] Care Team Providers Care Court Clerk Name Role Phone KIM CUNNINGHAM Unavailable PROBLEMS Type Condition ICD9-CM Code FFV48-MQ Code Onset Dates Condition Status SNOMED Code Problem Migraine without aura and without status migrainosus, not intractable G43.009 Active 190822304 Problem Body mass index (BMI) of 40.0-44.9 in adult Z68.41 Active 319648115 Problem Left cervical radiculopathy M54.12 Active 19586892 Problem Morbid (severe) obesity due to excess calories E66.01 Active [id number] ALLERGIES Substance Reaction Event Type Date Status Penicillin V Potassium paralysis Drug Allergy Mar, Active ENCOUNTERS Encounter Location Date Diagnosis [place] [id number] [place] [address] Jun, [place] [address] [place] [address] May, BMI 28.0-28.9,adult Z68.28 and Migraine without aura and without status migrainosus, not intractable G43.009 [facility] [id number] [place] [address] Mar, Left cervical radiculopathy M54.12 ; Morbid (severe) obesity due to excess calories E66.01 and Body mass index (BMI) of 40.0-44.9 in adult Z68.41 [facility] [address] [address] Oct, [place] [id number] [place] [address] Oct, [place] [address] [address] [address] Oct, Breast lump in female N63 [facility] [address] [facility] [id number] [address] Apr, [facility] [address] [facility] [id number], [place] [address] Apr, Breast lump in female N63 [facility] [address] [facility] [id number] [address] Mar, Lump of right breast N63 [facility] [address] [facility] [id number] [address] Nov, Bronchitis J40 and Cough R05 IMMUNIZATIONS No Known Immunizations SOCIAL HISTORY Never Assessed REASON FOR VISIT Left armpit skin tag - painful x 5 days. Pt requesting Naprosyn for neck pain a nd would like to discuss MRI diagnosis. Pt would like to discuss difficulty wit h weight loss. Poor appetite. [facility] PLAN OF CARE Activity Details Follow Up 3 Months with Jessica black weight management Reason: VITAL SIGNS Weight 189.3 lbs 2018-03-19 Temperature 97.6 degrees Fahrenheit 2018-03-19 Heart Rate 78 bpm 2018-03-19 Respiratory Rate 20 2018-03-19 Blood pressure systolic 128 mmHg 2018-03-19 Blood pressure diastolic 82 mmHg 2018-03-19 MEDICATIONS Medication Instructions Dosage Frequency Start Date End Date Duration Status Naproxen 500 mg Orally every 12 hrs 1 tablet with food or milk as needed 12h 13 Mar, 2018 Active ProAir HFA 108 (90 Base) MCG/ACT Inhalation every 4 hrs 2 puffs as needed 4h Nov, 10 days Not-Taking RESULTS No Results PROCEDURES No Known procedures [...] disc desiccation Surgical History tubal ligation 09/09/1996 Hospitalization History child / surgery
--- OUTSIDE RECORDS SUMMARY | 2019-04-02 08:36 | XMS REPORT ---
Author Author FUAD Avalos Organization [facility] Address [address] [place] [address] Care Team Providers Care Web Sizer Name Role Phone audeliaIESHA CedeñoNETTE Unavailable PROBLEMS Unknown Problems ALLERGIES No Known Allergies ENCOUNTERS Encounter Location Date Diagnosis [facility] [id number] [place] [address] Jan, [facility] [id number] [place] [address] Oct, [facility] [id number] [place] [address] Oct, [facility] [id number] [place] [address] Oct, Breast lump in female N63 [facility] [id number] [place] [address] Apr, [facility] [id number] [place] [address] Apr, Breast lump in female N63 [facility] [id number] [place] [address] Mar, Lump of right breast N63 [facility] [id number] [place] [address] Nov, Bronchitis J40 and Cough R05 IMMUNIZATIONS No Known Immunizations SOCIAL HISTORY Never Assessed REASON FOR VISIT Found lump in breast last night (right). Had a mammogram when she was in her 20 's because of fibroids. Pollard a lump that feels suspicious. BLANCA Nava PLAN OF CARE Activity Details Follow Up 2 Weeks Reason:breast lump VITAL SIGNS Weight 187 lbs 2017-03-27 Temperature 97.6 degrees Fahrenheit 2017-03-27 Heart Rate 88 bpm 2017-03-27 Respiratory Rate 22 2017-03-27 Blood pressure systolic 100 mmHg 2017-03-27 Blood pressure diastolic 70 mmHg 2017-03-27 MEDICATIONS Medication Instructions Dosage Frequency Start Date End Date Duration Status ProAir HFA 108 (90 Base) MCG/ACT Inhalation every 4 hrs 2 puffs as needed 4h Nov, 10 days Active RESULTS No Results PROCEDURES No Known procedures INSTRUCTIONS MEDICATIONS ADMINISTERED No Known Medications
--- OUTSIDE RECORDS SUMMARY | 2019-04-02 08:36 | XMS REPORT | Continuity of Care Document ---
Author Organization Unknown Address Unknown Allergies Active Description Code Type Severity Reaction Onset Reported/Identified Relationship to Patient Clinical Status Yes Penicillins [id number] Drug Allergy Unknown N/A 03/16/2016 Medications There is no data. Problems Date Dx Coded Attending Type Code Diagnosis Diagnosed By 03/16/2016 FILIBERTO MEADE APRN Ot F17.210 NICOTINE DEPENDENCE, CIGARETTES, UNCOMPL 03/16/2016 FILIBERTO MEADE APRN Ot M54.12 RADICULOPATHY, CERVICAL REGION 03/19/2016 FILIBERTO MEADE APRN Ot F17.210 NICOTINE DEPENDENCE, CIGARETTES, UNCOMPL 03/19/2016 FILIBERTO MEADE APRN Ot M54.12 RADICULOPATHY, CERVICAL REGION 04/04/2017 FUAD RODRIGUEZ MEDICAL PRACTICE ASSISTANT Ot N63 UNSPECIFIED LUMP IN BREAST 10/25/2017 FUAD RODRIGUEZ MEDICAL PRACTICE ASSISTANT Ot N63 UNSPECIFIED LUMP IN BREAST 10/28/2017 ANTHONY ZAMORANO LOG RIDER Ot N60.01 SOLITARY CYST OF RIGHT BREAST 11/08/2017 RED ORDAZ DO Ot N60.01 SOLITARY CYST OF RIGHT BREAST 11/29/2018 PEDRO CALLAHAN, EVELYN T Ot F17.210 NICOTINE DEPENDENCE, CIGARETTES, UNCOMPL 11/29/2018 PEDRO CALLAHAN, EVELYN T Ot R20.0 ANESTHESIA OF SKIN 11/29/2018 PEDRO CALLAHAN, EVELYN T Ot R47.01 APHASIA 11/29/2018 PEDRO CALLAHAN, EVELYN Moralez Ot R47.9 UNSPECIFIED SPEECH DISTURBANCES 11/29/2018 PEDRO CALLAHAN, EVELYN Moralez Ot Z88.0 ALLERGY STATUS TO PENICILLIN 11/29/2018 PEDRO CALLAHAN, EVELYN Moralez Ot Z98.51 TUBAL LIGATION STATUS 12/03/2018 FUAD RODRIGUEZ MEDICAL PRACTICE ASSISTANT Ot N63 UNSPECIFIED LUMP IN BREAST 12/03/2018 ANTHONY ZAMORANO APRN Ot N60.01 SOLITARY CYST OF RIGHT BREAST 12/03/2018 [facility] [place] Ot N60.01 SOLITARY CYST OF RIGHT BREAST 12/05/2018 PEDRO CALLAHAN, EVELYN Moralez Ot F17.210 NICOTINE DEPENDENCE, CIGARETTES, UNCOMPL 12/05/2018 EEVLYN VASQUEZ MD Ot R20.0 ANESTHESIA OF SKIN 12/05/2018 EVELYN VASQUEZ MD, Ot R47.01 APHASIA 12/05/2018 EVELYN VASQUEZ MD, Ot R47.9 UNSPECIFIED SPEECH DISTURBANCES 12/05/2018 EVELYN VASQUEZ MD Ot Z88.0 ALLERGY STATUS TO PENICILLIN 12/05/2018 EVELYN VASQUEZ MD, Ot Z98.51 TUBAL LIGATION STATUS 02/05/2019 FUAD RODRIGUEZ MEDICAL PRACTICE ASSISTANT Ot N63 UNSPECIFIED LUMP IN BREAST 02/05/2019 ANTHONY ZAMORANO APRN Ot N60.01 SOLITARY CYST OF RIGHT BREAST 02/05/2019 [facility] [place] Ot N60.01 SOLITARY CYST OF RIGHT BREAST 02/24/2019 FUAD RODRIGUEZ MEDICAL PRACTICE ASSISTANT Ot N63 UNSPECIFIED LUMP IN BREAST 02/24/2019 ANTHONY ZAMORANO APRN Ot N60.01 SOLITARY CYST OF RIGHT BREAST 02/24/2019 [facility] [place] Ot N60.01 SOLITARY CYST OF RIGHT BREAST Procedures There is no data. Results Test Result Range Capillary blood glucose measurement by glucometer (mass/volume) - 11/29/18 08:21 Capillary blood glucose measurement by glucometer (mass/volume) 121 mg/dL 70-110 Complete blood count (CBC) with automated white blood cell (WBC) differential - 11/29/18 08:22 Blood leukocytes automated count (number/volume) 6.8 10*3/uL 4.3-11.0 Blood erythrocytes automated count (number/volume) 4.12 10*6/uL 4.35-5.85 Venous blood hemoglobin measurement (mass/volume) 9.2 g/dL 11.5-16.0 Blood hematocrit (volume fraction) 32 % 35-52 Automated erythrocyte mean corpuscular volume 77 [foz_us] 80-99 Automated erythrocyte mean corpuscular hemoglobin (mass per erythrocyte) 22 pg 25-34 Automated erythrocyte mean corpuscular hemoglobin concentration measurement (mass/volume) 29 g/dL 32-36 Automated erythrocyte distribution width ratio 17.7 % 10.0- 14.5 Automated blood platelet count (count/volume) 568 10*3/uL 130-400 Automated blood platelet mean volume measurement 8.8 [foz_us] 7.4-10.4 Automated blood neutrophils/100 leukocytes 57 % 42-75 Automated blood lymphocytes/100 leukocytes 33 % 12-44 Blood monocytes/100 leukocytes 7 % 0-12 Automated blood eosinophils/100 leukocytes 2 % 0-10 Automated blood basophils/100 leukocytes 1 % 0-10 Blood neutrophils automated count (number/volume) 3.9 10*3 1.8-7.8 Blood lymphocytes automated count (number/volume) 2.2 10*3 1.0-4.0 Blood monocytes automated count (number/volume) 0.5 10*3 0.0- 1.0 Automated eosinophil count 0.2 10*3/uL 0.0-0.3 Automated blood basophil count (count/volume) 0.1 10*3/uL 0.0-0.1 Comprehensive metabolic panel - 11/29/18 08:22 Serum or plasma sodium measurement (moles/volume) 140 mmol/L 135-145 Serum or plasma potassium measurement (moles/volume) 3.7 mmol/L 3.6-5.0 Serum or plasma chloride measurement (moles/volume) 105 mmol/L 98-107 Carbon dioxide 24 mmol/L 21-32 Serum or plasma anion gap determination (moles/volume) 11 mmol/L 5-14 Serum or plasma urea nitrogen measurement (mass/volume) 11 mg/dL 7-18 Serum or plasma creatinine measurement (mass/volume) 0.81 mg/dL 0.60-1.30 Serum or plasma urea nitrogen/creatinine mass ratio 14 NRG Serum or plasma creatinine measurement with calculation of estimated glomerular filtration rate > NRG Serum or plasma glucose measurement (mass/volume) 115 mg/dL 70-105 Serum or plasma calcium measurement (mass/volume) 9.3 mg/dL 8.5-10.1 Serum or plasma total bilirubin measurement (mass/volume) 0.4 mg/dL 0.1-1.0 Serum or plasma alkaline phosphatase measurement (enzymatic activity/volume) 53 U/L 40-136 Serum or plasma aspartate aminotransferase measurement (enzymatic activity/volume) 15 U/L 5-34 Serum or plasma alanine aminotransferase measurement (enzymatic activity/volume) 9 U/L 0-55 Serum or plasma protein measurement (mass/volume) 7.1 g/dL 6.4-8.2 Serum or plasma albumin measurement (mass/volume) 4.2 g/dL 3.2-4.5 CALCIUM CORRECTED 9.1 mg/dL 8.5-10.1 Serum or plasma troponin i.cardiac measurement (mass/volume) - 11/29/18 08:22 Serum or plasma troponin i.cardiac measurement (mass/volume) < ng/mL <0.028 PT panel in platelet poor plasma by coagulation assay - 11/29/18 08:22 Prothrombin time (PT) in platelet poor plasma by coagulation assay 13.0 s 12.2-14.7 INR in platelet poor plasma or blood by coagulation assay 1.0 0.8-1.4 Activated partial thromboplastin time (aPTT) in platelet poor plasma bycoagulation assay - 11/29/18 08:22 Activated partial thromboplastin time (aPTT) in platelet poor plasma bycoagulation assay 29 s 24-35 Fibrin D-dimer FEU measurement in platelet poor plasma (mass/volume) - 11/29/18 08:22 Fibrin D-dimer FEU measurement in platelet poor plasma (mass/volume) 0.27 ug/mL 0.00-0.49 Complete urinalysis with reflex to culture - 11/29/18 08:43 Urine color determination YELLOW NRG Urine clarity determination CLEAR NRG Urine pH measurement by test strip 6 5-9 Specific gravity of urine by test strip 1.010 1.016-1.022 Urine protein assay by test strip, semi-quantitative NEGATIVE NEGATIVE Urine glucose detection by automated test strip NEGATIVE NEGATIVE Erythrocytes detection in urine sediment by light microscopy 1+ NEGATIVE Urine ketones detection by automated test strip NEGATIVE NEGATIVE Urine nitrite detection by test strip NEGATIVE NEGATIVE Urine total bilirubin detection by test strip NEGATIVE NEGATIVE Urine urobilinogen measurement by automated test strip (mass/volume) NORMAL NORMAL Urine leukocyte esterase detection by dipstick NEGATIVE NEGATIVE Automated urine sediment erythrocyte count by microscopy (number/high power field) RARE NRG Automated urine sediment leukocyte count by microscopy (number/high power field) RARE NRG Bacteria detection in urine sediment by light microscopy TRACE NRG Squamous epithelial cells detection in urine sediment by light microscopy 5-10 NRG Crystals detection in urine sediment by light microscopy NONE NRG Casts detection in urine sediment by light microscopy NONE NRG Mucus detection in urine sediment by light microscopy SMALL NRG Complete urinalysis with reflex to culture YES NRG Bacterial urine culture - 11/29/18 08:43 Bacterial urine culture SEE COMMEN NRG COLONY COUNT . NRG PT/INR - 12/08/18 11:39 INR 1.3 NRG PT 13.2 sec 9.0-11.5 Encounters ACCT No. Visit Date/Time Discharge Status Pt. Type Provider Facility Loc./Unit Complaint [id number] 03/10/2019 13:40:00 03/10/2019 23:59:59 CLS Outpatient KIM CUNNINGHAM [facility] [id number] 12/08/2018 10:00:00 Document Registration [id number] 11/29/2018 08:15:00 11/29/2018 14:37:00 DIS Emergency PEDRO CALLAHAN, EVELYN Moralez [facility] ER POSSIBLE STROKE [id number] 11/07/2017 08:48:00 11/07/2017 23:59:59 CLS Outpatient RED ORDAZ DO [facility] RAD RT BREAST CYSTIC LESIONS [id number] 10/25/2017 08:06:00 10/25/2017 23:59:59 CLS Outpatient ANTHONY ZAMORANO APRN [facility] RAD N63 BREAST LUMP [id number] 04/03/2017 08:07:00 04/03/2017 23:59:59 CLS Outpatient FUAD RODRIGUEZ MEDICAL PRACTICE ASSISTANT [facility] RAD LUMP OF RT BREAST N63 [id number] 03/16/2016 14:29:00 03/16/2016 15:43:00 DIS Emergency FILIBERTO MEADE LOG RIDER [facility] ER LEFT SHOULDER PAIN [id number] 04/02/2019 09:30:00 PEN PreadCompa Aquino MD [facility] CATH POSITIVE BUBBLE STUDY
--- OUTSIDE RECORDS SUMMARY | 2019-04-02 08:36 | XMS REPORT ---
Author Author ZAMORANOANTHONY Rai Organization [facility] Address [address] [place] [address] Care Team Providers Care Javascript Programmer Name Role Phone ZAMORANOANTHONY Rai Unavailable PROBLEMS Type Condition ICD9-CM Code ALS87-JY Code Onset Dates Condition Status SNOMED Code Problem Left cervical radiculopathy M54.12 Active [id number] ALLERGIES No Information ENCOUNTERS Encounter Location Date Diagnosis [facility] [id number] [place] [phone] May, [facility] [id number] [place] [phone] Mar, Left cervical radiculopathy M54.12 [facility] [id number] [place] [phone] Oct, [facility] [id number] [place] [phone] Oct, [facility] [id number] [place] [phone] Oct, Breast lump in female N63 [facility] [id number] [place] [phone] Apr, [facility] [id number] [place] [phone] Apr, Breast lump in female N63 [facility] [id number] [place] [phone] Mar, Lump of right breast N63 [facility] [id number] [place] [phone] Nov, Bronchitis J40 and Cough R05 IMMUNIZATIONS [...]
[2019-04-02] MEDS ORDERED: NS IV 1000 ML 1,000 ML IV ONE (08:39)
[2019-04-02] MEDS ORDERED: LIDOCAINE 2% VISCOUS 15 ML UDC PO ONE (08:45)
[2019-04-02] MEDS ORDERED: fentaNYL INJECTION 100 MCG/2 ML AMP IV ONE (08:45)
[2019-04-02] MEDS ORDERED: MIDAZOLAM 5 MG/5 ML (VERSED) VIAL IV ONE (08:45)
[2019-04-02] MEDS ORDERED: PANT40TA3 PO (08:55)
[2019-04-02] MEDS ORDERED: ATOR40TA70 PO (08:55)
[2019-04-02] MEDS ORDERED: APIX5TAB PO (08:55)
[2019-04-02] MEDS ORDERED: MIDAZOLAM 5 MG/5 ML (VERSED) VIAL ONE (09:05)
[2019-04-02] MEDS ORDERED: fentaNYL INJECTION 100 MCG/2 ML AMP ONE (09:05)
== END 2019-04-02 11:01 | disposition home or self-care (01) ==
LOC: CATH 08:25
PROVIDERS: ATTEND Internal Medicine Interventional Cardiology
DX: Q21.1 Atrial septal defect (principal); Z86.73 Personal history of transient ischemic attack (TIA), and cerebral infarction without residual deficits; Z79.01 Long term (current) use of anticoagulants; Z79.82 Long term (current) use of aspirin; Z79.899 Other long term (current) drug therapy
CPT/HCPCS: 93312; 93320; 93325

== ENCOUNTER 2019-06-17 13:31 | Emergency (ER) | payer SELFPAY ==
[~2019-06-17] VITALS: Ht 165 cm; Wt 75.0 kg
[~2019-06-17 13:31] MED LIST changes: +APIX5TAB PO; +ATOR40TA70 PO; +PANT40TA3 PO
[2019-06-17] MEDS ORDERED: ASPIRIN 81 MG CHEW (CHILDREN'S ASA) ONE (13:37)
[2019-06-17] MEDS ORDERED: ASPIRIN 81 MG CHEW (CHILDREN'S ASA) PO ONE (13:45)
[2019-06-17 13:53] LABS: BASOPHILS # (AUTO) 0.1 10^3/uL (0.0-0.1); BASOPHILS % (AUTO) 1 % (0-10); EOSINOPHILS # (AUTO) 0.1 10^3/uL (0.0-0.3); EOSINOPHILS % (AUTO) 1 % (0-10); HEMATOCRIT 28 % (35-52); LYMPHOCYTES # (AUTO) 2.5 X 10^3 (1.0-4.0); LYMPHOCYTES % (AUTO) 33 % (12-44); MEAN CORPUSCULAR HEMOGLOBIN 21 PG (25-34); MEAN CORPUSCULAR HGB CONC 28 G/DL (32-36); MEAN CORPUSCULAR VOLUME 73 FL (80-99); MEAN PLATELET VOLUME 9.5 FL (7.4-10.4); MONOCYTES # (AUTO) 0.5 X 10^3 (0.0-1.0); MONOCYTES % (AUTO) 7 % (0-12); NEUTROPHILS # (AUTO) 4.4 X 10^3 (1.8-7.8); NEUTROPHILS % (AUTO) 59 % (42-75); PLATELET COUNT 490 10^3/uL (130-400); RED CELL DISTRIBUTION WIDTH 17.8 % (10.0-14.5); WHITE BLOOD COUNT 7.6 10^3/uL (4.3-11.0)
[2019-06-17 14:05] LABS: INR 1.2 (0.8-1.4)
[2019-06-17 14:08] LABS: ALANINE AMINOTRANSFERASE 7 U/L (0-55); ALBUMIN 4.5 GM/DL (3.2-4.5); ALKALINE PHOSPHATASE 61 U/L (40-136); BILIRUBIN,TOTAL 0.7 MG/DL (0.1-1.0); BUN/CREATININE RATIO 9; CALCIUM 9.4 MG/DL (8.5-10.1); CARBON DIOXIDE 23 MMOL/L (21-32); CHLORIDE 106 MMOL/L (98-107); CREATININE SERUM 0.79 MG/DL (0.60-1.30); GFR ESTIMATED > 60; GLUCOSE 97 MG/DL (70-105); MAGNESIUM 2.3 MG/DL (1.6-2.4); POTASSIUM 3.3 MMOL/L (3.6-5.0); SODIUM 140 MMOL/L (135-145); TOTAL PROTEIN 7.9 GM/DL (6.4-8.2)
--- NOTE | 2019-06-17 14:32 | NUR ---
radiology in room to obtain images
--- NOTE | 2019-06-17 14:41 | Diagnostic Imaging Report ---
INDICATION: Severe chest pain. COMPARISON: 11/29/2018 FINDINGS: Single frontal view of the chest demonstrates normal heart size and pulmonary vascularity. The lungs are well aerated and clear. No large pleural effusion or pneumothorax is seen. The visualized osseous structures show no acute abnormalities. IMPRESSION: 1. No acute cardiopulmonary process. Dictated by: Dictated on workstation # [id number]
--- NOTE | 2019-06-17 15:06 | NUR ---
warm blanket provided to pt per request
--- NOTE | 2019-06-17 15:43 | NUR ---
REPEAT TROPONIN SENT TO LAB
--- NOTE | 2019-06-17 16:30 | NUR ---
pt sitting in ED bed quietly with family at side, pt shows no s/s of distress, pt denies any needs or c/o at this time, will continue to monitor
[2019-06-17] MEDS ORDERED: FERR-84 PO (16:37)
--- NOTE | 2019-06-17 16:37 | ED Chest Pain ---
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 She felt like someone hit her in the chest. This lasted approximately 2 minutes. She felt chilled and sweaty at the time. The pain subsided and then she felt nauseated and had pressure on her back. She rested and felt like her heart was racing. All symptoms subsided by the time of her arrival to the ER. She denies any symptoms at this time. She had a stroke in November and is on Eliquis. She is compliant with this. She reportedly had a PFO contributing to her stroke. Allergies and Home Medications Allergies Coded Allergies: Penicillins (Unverified Adverse Reaction, Unknown, 03/16/16) Home Medications Acetaminophen 500 Mg/5 Ml Liquid, 500 MG PO Q6H PRN for PAIN, (Reported) Apixaban 5 Mg Tablet, 5 MG PO BID, (Reported) Atorvastatin Calcium 40 Mg Tablet, 40 MG PO DAILY, (Reported) Ferrous Sulfate 325 Mg Tablet, 325 MG PO BID Prescribed by: EVELYN NUNES on 06/17/19 1637 Pantoprazole Sodium 40 Mg Tablet.dr, 40 MG PO DAILY, (Reported) Patient Home Medication List Home Medication List Reviewed: Yes Review of Systems Review of Systems Constitutional: see HPI EENTM: No Symptoms Reported Respiratory: No Symptoms Reported Cardiovascular: See HPI Gastrointestinal: No Symptoms Reported Genitourinary: No Symptoms Reported Musculoskeletal: no symptoms reported Skin: no symptoms reported Psychiatric/Neurological: No Symptoms Reported Endocrine: No Symptoms Reported Hematologic/Lymphatic: No Symptoms Reported Past Jgqkzcm-Vspadi-Bvobef Hx Past Med/Social Hx: Reviewed Nursing Past Med/Soc Hx Patient Social History Alcohol Use: Denies Use Recreational Drug Use: No Smoking Status: Former Smoker Type Used: Cigarettes 2nd Hand Smoke Exposure: No Recent Foreign Travel: No Contact w/Someone Who Travel: No Recent Infectious Disease Expo: No Immunizations Up To Date Tetanus Booster (TDap): Unknown Seasonal Allergies Seasonal Allergies: No Past Medical History Surgeries: Yes Tubal Ligation Respiratory: No Cardiac: Yes (Small patent foramen ovale) Neurological: Yes Stroke : No Last Menstrual Period: May 07, 2019 Reproductive Disorders: No Genitourinary: No Gastrointestinal: No Musculoskeletal: Yes (ANKLE FRACTURE, CHRONIC NECK PAIN) Arthritis Endocrine: Yes ("BORDERLINE DIABETIC") Cancer: No Psychosocial: No Blood Disorders: No Adverse Reaction/Blood Tranf: No Physical Exam Vital Signs Vital Signs - First Documented 06/17/19 06/17/19 13:31 17:05 Temp 37.2 Pulse 77 Resp 16 B/P (MAP) 145/84 (104) Pulse Ox 98 O2 Delivery Room Air Capillary Refill : Less Than 3 Seconds Height, Weight, BMI Height: 5'5.00" Weight: 187lbs. 0.0oz. 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 as Tested Skin: Normal Color, Warm/Dry Progress/Results/Core Measures Results/Orders Lab Results Laboratory Tests Test 06/17/19 13:39 06/17/19 15:21 Range/Units White Blood Count 7.6 4.3-11.0 10^3/uL Red Blood Count 3.90 L 4.35-5.85 10^6/uL Hemoglobin 8.0 L 11.5-16.0 G/DL Hematocrit 28 L 35-52 % Mean Corpuscular Volume 73 L 80-99 FL Mean Corpuscular Hemoglobin 21 L 25-34 PG Mean Corpuscular Hemoglobin Concent 28 L 32-36 G/DL Red Cell Distribution Width 17.8 H 10.0-14.5 % Platelet Count 490 H 130-400 10^3/uL Mean Platelet Volume 9.5 7.4-10.4 FL Neutrophils (%) (Auto) 59 42-75 % Lymphocytes (%) (Auto) 33 12-44 % Monocytes (%) (Auto) 7 0-12 % Eosinophils (%) (Auto) 1 0-10 % Basophils (%) (Auto) 1 0-10 % Neutrophils # (Auto) 4.4 1.8-7.8 X 10^3 Lymphocytes # (Auto) 2.5 1.0-4.0 X 10^3 Monocytes # (Auto) 0.5 0.0-1.0 X 10^3 Eosinophils # (Auto) 0.1 0.0-0.3 10^3/uL Basophils # (Auto) 0.1 0.0-0.1 10^3/uL Prothrombin Time 16.0 H 12.2-14.7 SEC INR Comment 1.2 0.8-1.4 Activated Partial Thromboplast Time 32 24-35 SEC Sodium Level 140 135-145 MMOL/L Potassium Level 3.3 L 3.6-5.0 MMOL/L Chloride Level 106 98-107 MMOL/L Carbon Dioxide Level 23 21-32 MMOL/L Anion Gap 11 5-14 MMOL/L Blood Urea Nitrogen 7 7-18 MG/DL Creatinine 0.79 0.60-1.30 MG/DL Estimat Glomerular Filtration Rate > 60 BUN/Creatinine Ratio 9 Glucose Level 97 70-105 MG/DL Calcium Level 9.4 8.5-10.1 MG/DL Corrected Calcium 9.0 8.5-10.1 MG/DL Magnesium Level 2.3 1.6-2.4 MG/DL Total Bilirubin 0.7 0.1-1.0 MG/DL Aspartate Amino Transf (AST/SGOT) 12 5-34 U/L Alanine Aminotransferase (ALT/SGPT) 7 0-55 U/L Alkaline Phosphatase 61 40-136 U/L Myoglobin 24.1 10.0-92.0 NG/ML Troponin I < 0.028 < 0.028 <0.028 NG/ML Total Protein 7.9 6.4-8.2 GM/DL Albumin 4.5 3.2-4.5 GM/DL My Orders Orders - EVELYN VASQUEZ MD Cbc With Automated Diff (06/17/19 13:44) Magnesium (06/17/19 13:44) Chest 1 View, Ap/Pa Only (06/17/19 13:44) Ekg Tracing (06/17/19 13:44) Cardiac Profile 1 (06/17/19 13:44) Comprehensive Metabolic Panel (06/17/19 13:44) Myoglobin Serum (06/17/19 13:44) Protime With Inr (06/17/19 13:44) Partial Thromboplastin Time (06/17/19 13:44) O2 (06/17/19 13:44) Monitor-Rhythm Ecg Trace Only (06/17/19 13:44) Ed Iv/Invasive Line Start (06/17/19 13:44) Aspirin Chewable Tablet (Baby Aspirin Ch (06/17/19 13:45) Aspirin Chewable Tablet (Baby Aspirin Ch (06/17/19 13:37) Troponin I (06/17/19 15:40) Medications Given in ED Vital Signs/I&O 06/17/19 06/17/19 13:31 17:05 Temp 37.2 37.2 Pulse 77 77 Resp 16 16 B/P (MAP) 145/84 (104) 145/84 (104) Pulse Ox 98 O2 Delivery Room Air Blood Pressure Mean: 104 Progress Progress Note : Progress Note Workup was unremarkable including repeat troponin at 2 hours. She had no further symptoms while in the ER. Microcytic anemia was noted on her labs. This is concerning in light of her use of anticoagulants. I advised her to follow closely with her primary care provider to investigate the cause of her anemia. In the meantime, she is being started on iron replacement. Initial ECG Impression Date: Jun 17, 2019 Initial ECG Impression Time: 13:34 Initial ECG Rate: 69 Initial ECG Rhythm: Normal Sinus Initial ECG Intervals: Normal Initial ECG Impression: Normal Comment Normal sinus rhythm with no ST elevation or depression. No abnormal intervals or axis deviation. Diagnostic Imaging Diagonstic Imaging: Xray Plain Films/CT/US/NM/MRI: chest Comments NAME: EDUARDO ROWE [facility] REC#: [id number] PT STATUS: DEP ER : 1975 PHYSICIAN: EVELYN VASQUEZ MD ADMIT DATE: 06/17/19/ER Signed Date of Exam: 06/17/19 CHEST 1 VIEW, AP/PA ONLY INDICATION: Severe chest pain. COMPARISON: 11/29/2018 FINDINGS: Single frontal view of the chest demonstrates normal heart size and pulmonary vascularity. The lungs are well aerated and clear. No large pleural effusion or pneumothorax is seen. The visualized osseous structures show no acute abnormalities. IMPRESSION: 1. No acute cardiopulmonary process. Dictated by: Dictated on workstation # [id number] Dict: 06/17/19 1439 Trans: 06/18/19 0803 Interpreted by: ALICE COTTO MD Electronically signed by: ALICE COTTO MD 06/18/19 0803 Departure Impression Primary Impression: Chest pain Qualified Codes: R07.9 - Chest pain, unspecified Additional Impression: Microcytic anemia Disposition: HOME, SELF-CARE Condition: Improved Departure-Patient Inst. Decision time for Depature: 16:35 Referrals: [facility] (PCP/Family) Primary Care Physician Patient Instructions: Anemia Caused by Low Iron, Chest Pain (DC) Add. Discharge Instructions: Follow-up with your auto claim representative and primary care provider soon as possible, preferably within one week. Return to emergency room if you have worsening symptoms. Please start iron and a multivitamin to help resolve your anemia. Your anemia needs to be followed closely. This may be an indication that you're losing blood from somewhere such as your gastrointestinal tract or from heavy periods. This needs to be followed closely, especially because you are on blood thinning medications. All discharge instructions reviewed with patient and/or family. Voiced understanding. Scripts Ferrous Sulfate (Iron) 325 Mg Tablet 325 MG PO BID, #60 TAB Prov: EVELYN VASQUEZ MD 06/17/19 Copy Copies To 1: Compa CARDENAS MD Copies To 2: KIM CUNNINGHAM MD, JOSHUA T MD Jun 17, 2019 16:37
[2019-06-17 17:05] VITALS: BP 145/84
== END 2019-06-17 17:07 | disposition home or self-care (01) ==
LOC: EDUNIT# 13:31 → ER 13:32
DX: R07.9 Chest pain, unspecified (principal); D50.9 Iron deficiency anemia, unspecified; Z86.73 Personal history of transient ischemic attack (TIA), and cerebral infarction without residual deficits; Z79.01 Long term (current) use of anticoagulants; Z88.0 Allergy status to penicillin; Z87.891 Personal history of nicotine dependence; Z98.51 Tubal ligation status
CPT/HCPCS: 36415; 71045; 80053; 83735; 83874; 84484; 85025; 85610; 85730; 93005; 93041